=== PATIENT | female | born 1990 | race Hispanic/Latino ===

== ENCOUNTER 2017-09-22 16:55 | Emergency (ER) | payer OTHER ==
[2017-09-22 17:00] VITALS: BP 129/73; PULSE 91; RESP 16; TEMP 98.8; O2SAT 100
[2017-09-22] MEDS ORDERED: Sodium Chloride 0.9% 1,000 ML IV STA (17:27)
--- NOTE | 2017-09-22 17:29 | ED PDOC ---
"HPI: Abdomen Time Seen by Provider: 09/22/17 17:05 Chief Complaint (Nursing): Abdominal Pain Chief Complaint (Provider): Abdominal Pain History Per: Patient History/Exam Limitations: no limitations Onset/Duration Of Symptoms: Days (2 days) Outside of [place] travel?: Yes Other Location:: [place] Current Symptoms Are (Timing): Constant Associated Symptoms: Nausea. denies: Fever, Vomiting, Diarrhea, Constipation, Urinary Symptoms Additional Complaint(s): Patient is a 27 y/o female with no past medical history or surgeries who presents to the ED complaining of lower abdominal pain x2 days that is constant. Patient reports that she returned from [place] on Saturday, though she had all vaccinations prior to travel. She reports feeling nauseas but denies any vomiting, diarrhea, fever, or urinary symptoms. PCP: FAMILY PROVIDER,NO Past Medical History Reviewed: Historical Data, Nursing Documentation, Vital Signs Vital Signs: Last Vital Signs Temp 98.8 F 09/22/17 16:58 Pulse 91 H 09/22/17 16:58 Resp 16 09/22/17 16:58 BP 129/73 09/22/17 16:58 Pulse Ox 100 09/22/17 21:16 - Medical History PMH: No Chronic Diseases - Surgical History Surgical History: No Surg Hx - Family History Family History: States: No Known Family Hx - Home Medications Home Medications: Ambulatory Orders Medication Instructions Recorded Acetaminophen with Codeine 1 tab PO Q6H PRN #10 tab 09/22/17 [Tylenol with Codeine No. 3 300 mg-30 mg] Ciprofloxacin [Cipro] 500 mg PO BID #19 tab 09/22/17 metroNIDAZOLE [Flagyl] 500 mg PO TID #29 tab 09/22/17 - Allergies Allergies/Adverse Reactions: Allergies Allergy/AdvReac Type Severity Reaction Status Date / Time No Known Allergies Allergy Verified 09/22/17 17:03 Review of Systems ROS Statement: Except As Marked, All Systems Reviewed And Found Negative Constitutional: Negative for: Fever Gastrointestinal: Positive for: Nausea, Abdominal Pain (lower abdomen). Negative for: Vomiting, Diarrhea, Constipation Physical Exam - Reviewed Nursing Documentation Reviewed: Yes Vital Signs Reviewed: Yes - Physical Exam Appears: Positive for: Non-toxic, No Acute Distress Head Exam: Positive for: ATRAUMATIC, NORMOCEPHALIC Skin: Positive for: Normal Color, Warm, Dry Eye Exam: Positive for: Normal appearance, EOMI, PERRL Neck: Positive for: Normal, Painless ROM, Supple Cardiovascular/Chest: Positive for: Regular Rate, Rhythm. Negative for: Murmur Respiratory: Positive for: Normal Breath Sounds. Negative for: Respiratory Distress Gastrointestinal/Abdominal: Positive for: Soft, Tenderness (bilateral lower quadrant suprapubic tenderness). Negative for: Guarding, Rebound Back: Positive for: Normal Inspection. Negative for: L CVA Tenderness, R CVA Tenderness, Vertebral Tenderness Extremity: Positive for: Normal ROM. Negative for: Pedal Edema, Deformity Neurologic/Psych: Positive for: Alert, Oriented (x3). Negative for: Motor/ Sensory Deficits - Laboratory Results Result Diagrams: 09/22/17 17:30 09/22/17 17:30 - ECG O2 Sat by Pulse Oximetry: 100 (RA) Pulse Ox Interpretation: Normal Medical Decision Making Medical Decision Making: Time: 17:26 Initial Impression: Colitis, Appendicitis, Urinary tract infection, Ovarian Cyst Initial Plan: --CT abdomen/pelvis --Labs --ED Urine --ED Urine Dipstick --Sodium Chloride 0.9% IV 1,000 mls/hr --Ondansetron 4mg IV --Urinalysis --US pelvis/transvaginal --Reevaluation Time: 1954 -CT abdomen/pelvis results FINDINGS: Lower thorax: No acute findings. ABDOMEN: Liver: Unremarkable. No mass. Gallbladder and bile ducts: Unremarkable. No calcified stones. No ductal dilation. Pancreas: Unremarkable. No mass. No ductal dilation. Spleen: Unremarkable. No splenomegaly. Adrenals: Unremarkable. No mass. Kidneys and ureters: Unremarkable. No solid mass. No hydronephrosis. Stomach and bowel: There is diverticular disease with wall thickening and surrounding inflammatory change in the sigmoid colon, consistent with acute diverticulitis. No obstruction. Appendix: A normal appendix is identified. PELVIS: JANEE ÁLVAREZ | Preliminary Radiology Report SPECIAL LIBRARIAN (QA) DISCREPANCY? If there is a discrepancy between the preliminary and final interpretation, please notify [facility] via [email or web address]. If you do not have access to our QA portal, call our QA team at [phone] CONFIDENTIALITY STATEMENT This report is intended only for the use of the referring physician, and only in accordance with law, If you received this in error, call [phone] Page 2 of 2 Bladder: Unremarkable. No mass. Reproductive: Unremarkable as visualized. ABDOMEN and PELVIS: Intraperitoneal space: Unremarkable. No free air. No significant fluid collection. Bones/joints: No acute fracture. No dislocation. Soft tissues: There is a small fat-containing umbilical hernia. Vasculature: Unremarkable. No abdominal aortic aneurysm. Lymph nodes: Unremarkable. No enlarged lymph nodes. IMPRESSION: Acute sigmoid reticulitis without evidence of perforation or abscess. Time: 2058 -US pelvis/transvaginal results FINDINGS: Uterus: Within normal limits in appearance. Measures 6.9 x 3.1 x 3.5 cm. Endometrial stripe does not appear abnormally thickened, measuring 1.3 mm. No fibroids visualized. Right ovary: Within normal limits in appearance, containing multiple follicles. Measures 2.9 x 2.6 x 2.3 cm. Flow seen in the right ovary on color and Doppler imaging, with no evidence of torsion. Left ovary:Within normal limits in appearance, containing multiple follicles. Measures 2.4 x 1.8 x 2.3 cm. Flow seen in the left ovary on color and Doppler imaging, with no evidence of torsion. Left adnexa: An elongated, masslike area is seen in the left adnexal region, abutting the left ovary. This is heterogeneous in appearance, and is associated with dirty shadowing. Given the recent CT findings, this most likely represents the abnormally thick-walled sigmoid colon , secondary to the acute sigmoid diverticulitis. Cul-de-sac: No free fluid. IMPRESSION: No acute abnormality of the uterus or ovaries seen. No evidence of ovarian torsion. JANEE ÁLVAREZ | Final Radiology Report CONFIDENTIALITY STATEMENT This report is intended only for use by the referring physician, and only in accordance with law. If you received this in error, call [phone]. Page 2 of 2 Elongated, masslike area in the left adnexal region, felt to represent an abnormally thickwalled sigmoid colon, secondary to the acute sigmoid diverticulitis seen on the recent pelvic CT. Scribe Attestation: Documented by Sheldon Escobar, acting as a scribe for Nneka Main MD Provider Scribe Attestation: All medical record entries made by the Scribe were at my direction and personally dictated by me. I have reviewed the chart and agree that the record accurately reflects my personal performance of the history, physical exam, medical decision making, and the department course for this patient. I have also personally directed, reviewed, and agree with the discharge instructions and disposition. Disposition - Clinical Impression Clinical Impression: Acute diverticulitis - Disposition Referrals: Shahriar Jamison MD [Staff Provider] - Disposition: Routine/Home Disposition Time: 21:21 Condition: STABLE Prescriptions: Acetaminophen with Codeine [Tylenol with Codeine No. 3 300 mg-30 mg] 1 tab PO Q6H PRN #10 tab PRN Reason: Pain, Severe (8-10) Ciprofloxacin [Cipro] 500 mg PO BID #19 tab metroNIDAZOLE [Flagyl] 500 mg PO TID #29 tab Instructions: Diverticulitis (ED), Diverticulitis Diet (ED) Forms: [employer] (Norwegian)"
[2017-09-22 17:45] LABS: BASO % 0.3 % (0.0-2.0); EOS # 0.4 K/uL (0.0-0.7); EOS % 3.7 % (0.0-4.0); HEMATOCRIT 37.1 % (34.0-47.0); LYMPH # 2.2 K/uL (1.0-4.3); LYMPH % 21.6 % (20.0-40.0); MEAN CELL VOLUME 92.4 fl (81.0-99.0); MEAN CORPUSCULAR HEMOGLOBIN 32.2 pg (27.0-31.0); MEAN CORPUSCULAR HGB CONC 34.8 g/dL (33.0-37.0); MEAN PLATELET VOLUME 8.5 fl (7.2-11.7); MONO # 0.7 K/uL (0.0-0.8); NEUT # 6.8 K/uL (1.8-7.0); NEUT % 67.4 % (50.0-75.0); NRBC % 0.1 % (0.0-0.0); RED CELL DISTRIBUTION WIDTH 11.8 % (11.5-14.5); WHITE BLOOD COUNT 10.1 K/uL (4.8-10.8)
[2017-09-22 17:52] LABS: ALB/GLOB RATIO 1.5 (1.0-2.1); ALKALINE PHOSPHATASE 77 U/L (38-126); ALT/SGPT 28 U/L (9-52); AST/SGOT 22 U/L (14-36); BILIRUBIN,TOTAL 0.9 mg/dl (0.2-1.3); BLOOD UREA NITROGEN 13 mg/dl (7-17); CALCIUM 9.6 mg/dL (8.4-10.2); CARBON DIOXIDE 25 mmol/L (22-30); CHLORIDE 103 mmol/L (98-107); GFR AFRICAN-AMERICAN > 60; GLUCOSE,RANDOM 121 mg/dL (65-105); POTASSIUM 3.4 MMOL/L (3.6-5.0); SODIUM 140 mmol/l (132-148); TOTAL PROTEIN 7.8 G/DL (6.3-8.2)
[2017-09-22 17:55] LABS: RBC URINE 3 /hpf (0-3); URINE BACTERIA RARE (<OCC); URINE BILIRUBIN NEGATIVE (NEGATIVE); URINE BLOOD NEGATIVE (NEGATIVE); URINE COLOR YELLOW (YELLOW); URINE GLUCOSE (UA) NEG (Normal); URINE KETONE 20 mg/dL (NEGATIVE); URINE LEUKOCYTE ESTERASE NEG Leu/uL (Negative); URINE PROTEIN NEGATIVE (NEGATIVE); URINE UROBILINOGEN 0.2-1.0 mg/dL (0.2-1.0); WBC URINE 2 /hpf (0-5)
[2017-09-22] MEDS ORDERED: Potassium Chloride 20 mEq ER Tab PO STA (17:56)
[2017-09-22] MEDS ORDERED: Iohexol 300 100 ML IJ ONE (18:55)
[2017-09-22] MEDS ORDERED: Sodium Chloride 0.9% 50 ML IV ONE (18:56)
[2017-09-22] MEDS ORDERED: Potassium Chloride 20 mEq ER Tab PO ONE (20:55)
--- NOTE | 2017-09-22 21:00 | US ---
EXAM: US Pelvis Complete, Transabdominal US Pelvis, Transvaginal EXAM DATE/TIME: 09/22/2017 5:26 PM CLINICAL HISTORY: 27 years old, female; Pain; Pelvic pain; Additional info: Blq pain TECHNIQUE: Real-time transabdominal and transvaginal pelvic ultrasound (complete) with image documentation. Transvaginal imaging was used for better evaluation of the endometrium and adnexa. COMPARISON: CT pelvis, done about 30 minutes subsequent to this exam. FINDINGS: Uterus: Within normal limits in appearance. Measures 6.9 x 3.1 x 3.5 cm. Endometrial stripe does not appear abnormally thickened, measuring 1.3 mm. No fibroids visualized. Right ovary: Within normal limits in appearance, containing multiple follicles. Measures 2.9 x 2.6 x 2.3 cm. Flow seen in the right ovary on color and Doppler imaging, with no evidence of torsion. Left ovary:Within normal limits in appearance, containing multiple follicles. Measures 2.4 x 1.8 x 2.3 cm. Flow seen in the left ovary on color and Doppler imaging, with no evidence of torsion. Left adnexa: An elongated, masslike area is seen in the left adnexal region, abutting the left ovary. This is heterogeneous in appearance, and is associated with dirty shadowing. Given the recent CT findings, this most likely represents the abnormally thick-walled sigmoid colon, secondary to the acute sigmoid diverticulitis. Cul-de-sac: No free fluid. IMPRESSION: No acute abnormality of the uterus or ovaries seen. No evidence of ovarian torsion. Elongated, masslike area in the left adnexal region, felt to represent an abnormally thick-walled sigmoid colon, secondary to the acute sigmoid diverticulitis seen on the recent pelvic CT. See above for remaining findings.
[2017-09-22] MEDS ORDERED: HYDROmorphone 0.5 mg/0.5 ml ISec IVP STA (21:18)
[2017-09-22] MEDS ORDERED: HYDROmorphone 0.5 mg/0.5 ml ISec ONE (21:22)
--- NOTE | 2017-09-23 08:49 | CT ---
PROCEDURE: CT Abdomen and Pelvis with contrast HISTORY: BLQ pain COMPARISON: Transvaginal pelvic ultrasonography the 09/20/2017 as well. TECHNIQUE: Contrast dose: Omnipaque 300, 90 cc. Radiation dose: Total exam DLP = 453.93 mGy-cm. This CT exam was performed using one or more of the following dose reduction techniques: Automated exposure control, adjustment of the mA and/or kV according to patient size, and/or use of iterative reconstruction technique. FINDINGS: LOWER THORAX: Unremarkable. LIVER: Unremarkable. No gross lesion or ductal dilatation. GALLBLADDER AND BILE DUCTS: Unremarkable. PANCREAS: Unremarkable. No gross lesion or ductal dilatation. SPLEEN: Unremarkable. ADRENALS: Unremarkable. No mass. KIDNEYS AND URETERS: Unremarkable. No hydronephrosis. No solid mass. VASCULATURE: Unremarkable. No aortic aneurysm. BOWEL: Marked thickening of mid sigmoid colon is appreciated without definite diverticular disease. Local pericolic reaction is prominent. No abscess or free air is appreciable. Findings most compatible segmental colitis of indeterminate etiology. Consider infectious or inflammatory causes with neoplasm not completely excluded. Ischemia is included in the differential diagnosis but is not favored given robust enhancement throughout the abdominal aorta, superior and inferior mesenteric arteries and their branches. Clinical follow-up is recommended. APPENDIX: Normal appendix. PERITONEUM: Unremarkable. No free fluid. No free air. LYMPH NODES: Unremarkable. No enlarged lymph nodes. BLADDER: Unremarkable. REPRODUCTIVE: Unremarkable. BONES: No acute fracture. OTHER FINDINGS: None. IMPRESSION: 1. Segmental colitis affects the mid to distal sigmoid colon and consider infectious or inflammatory causes as etiology with neoplasm not completely excluded. Ischemia is including the differential diagnosis but is not favored. Robust opacification is seen throughout the abdominal aorta, superior and the inferior mesenteric arteries and local branches. 2. Normal appendix. Concordant preliminary report from [facility], 09/20/2017.
== END 2017-09-22 21:41 | disposition home or self-care (01) ==
LOC: H.ER 16:55
DX: K57.32 Diverticulitis of large intestine without perforation or abscess without bleeding (principal)
CPT/HCPCS: 74177; 76830; 76856; 80053; 81003; 81025; 85025; 96374; 99283; J1170; J2405; J7040; Q9967